=== PATIENT | male | born 1940 | race Caucasian/White ===

== ENCOUNTER 2017-01-28 08:54 | Outpatient (CLI) ==
[2016-03-25 06:22] VITALS: BMI 28.5
== END 2017-01-28 08:55 | disposition home or self-care (01) ==
LOC: CAR 08:54
PROVIDERS: ATTEND Family Medicine
DX: J43.0 Unilateral pulmonary emphysema [MacLeod's syndrome] (principal)
CPT/HCPCS: 94761

== ENCOUNTER 2017-02-09 20:45 | Emergency (ER) ==
[2017-02-09 20:49] VITALS: BP 106/75; TEMP 98.2; BMI 29.8
--- NOTE | 2017-02-09 21:13 | ED.PDOC ---
General ED Provider: Dr. ANDRES UMANZOR-ER Chief Complaint: Ankle Pain/Injury Stated Complaint: i was getting out of my truck and i twisted my ankle and felt a pop Time Seen by Physician: 21:11 Mode of Arrival: Wheelchair Information Source: Patient, Family Exam Limitations: No limitations Primary Care Provider: ANDRES UMANZOR Nursing and Triage Documentation Reviewed and Agree: Yes Musculoskeletal Complaint Exam - Ankle/Foot Complaint/Exam Location of Injury: Reports: Left, Ankle Mechanism of Injury: Reports: No known trauma Onset/Duration: 6hrs Symptoms Are: Reports: Still present Onset of Pain: Reports: Immediate Initial Severity: Mild Current Severity: Mild Location: Reports: Discrete Character: Reports: Dull, Aching Alleviating: Reports: None Aggravating: Reports: Movement, Weight bearing, Prolonged standing Able to Bear Weight: Yes Associated Signs and Symptoms: Reports: Swelling. Denies: Redness, Bruising, Fever, Weakness, Numbness, Tingling Gout Risk Factors: Reports: HTN, Hyperlipidemia Lower Extremity Findings: Present: Swelling, Ecchymosis, Tenderness, Limited range of motion Achilles Tendon Abnormality: No Tenderness: Present: Lateral malleolus Limited Range of Motion: Present: Inversion, Eversion Differential Diagnosis: Closed Fracture, Sprain, Strain Review of Systems - Review Of Systems Constitutional: Reports: No symptoms Eyes: Reports: No symptoms Ears, Nose, Mouth, Throat: Reports: No symptoms Respiratory: Reports: No symptoms Cardiac: Reports: No symptoms GI: Reports: No symptoms : Reports: No symptoms Musculoskeletal: Reports: Joint pain, Joint swelling Skin: Reports: No symptoms Neurological: Reports: No symptoms Endocrine: Reports: No symptoms Hematologic/Lymphatic: Reports: Blood clots All Other Systems: Reviewed and Negative Past Medical History - Past Medical History Previously Healthy: No Endocrine: Reports: Dyslipidemia Cardiovascular: Reports: Hypertension Respiratory: Reports: COPD Hematological: Reports: None Gastrointestinal: Reports: None Genitourinary: Reports: None Neuro/Psych: Reports: None Musculoskeletal: Reports: None Cancer: Reports: None Other Pertinent Past Medical History: athritis - Surgical History General Surgical History: Reports: Cholecystectomy, Other (BACK, RT KNEE REPLACEMENT) - Family History Family History: Reports: Unknown - Social History Smoking Status: Former smoker, Chews tobacco Hx Substance Use: No Alcohol Screening: None Lives: With family - Immunizations Tetanus Shot up to Date: (UNKNOWN) Physical Exam - Physical Exam Appearance: Well-appearing, No pain distress, Well-nourished Pain Distress: Mild Eyes: AGATHA, EOMI, Conjunctiva clear ENT: Ears normal, Nose normal, Oropharynx normal Neck: Supple Respiratory: Airway patent, Breath sounds clear, Breath sounds equal, Respirations nonlabored Cardiovascular: RRR, Pulses normal, No rub, No murmur GI/: Soft Musculoskeletal: Limited ROM Skin: Warm, Dry, Normal color Neurological: Sensation intact, Motor intact, Reflexes intact, Cranial nerves intact, Alert, Oriented Psychiatric: Affect appropriate Interpretation - Radiology Interpretation Radiology Interpretation By: Radiologist Radiology Results: Negative Exam Interpreted: CT Scan Critical Care Note - Critical Care Note Total Time (mins): 0 Course - Course Orders, Labs, Meds: Orders Category Date Time Status Air cast [ED SPLINT APPLICATION] .ONCE EMERGENCY 02/09/17 21:33 Active ED EDGARDO WRAP .ONCE EMERGENCY 02/09/17 21:33 Active Hydrocodone Bit/Acetaminophen [[place] 5-325] MEDS 02/09/17 21:33 Discontinued 1 tab PO ONCE STA CT ANKLE LEFT WITHOUT CONTRAST Stat RADS 02/09/17 20:47 Completed Medications Discontinued Medications Generic Name Dose Route Start Last Admin Trade Name Freq PRN Reason Stop Dose Admin Acetaminophen/Hydrocodone Bitart 1 tab 02/09/17 21:33 02/09/17 21:48 [place] 5-325 PO 02/09/17 21:34 1 tab ONCE STA Administration Vital Signs: Temp Pulse Resp BP Pulse Ox 02/09/17 20:46 98.2 F 83 20 106/75 97 Departure - Departure Time of Disposition: 21:34 Disposition: HOME SELF-CARE Discharge Problem: Ankle pain Instructions: Ankle Sprain (ED), Ankle Stirrup Splint (ED) Condition: Good Pt referred to PMD for follow-up: Yes Additional Instructions: stay in splint--norco 5mg q 4hrs prn pain #10--f/u with me one week if not improved Allergies/Adverse Reactions: Allergies heparin Adverse Reaction (Verified 02/09/17 20:50) hydroxyzine HCl [From Vistaril] Adverse Reaction (Verified 02/09/17 20:50) hydroxyzine pamoate [From Vistaril] Adverse Reaction (Verified 02/09/17 20:50) meperidine HCl [From Demerol] Adverse Reaction (Verified 02/09/17 20:50) Home Medications: Ambulatory Orders Fluticasone/Salmeterol 250/50 [Advair 250-50 Diskus] 1 puff INH BID 07/10/13 Gabapentin [Neurontin] 300 mg PO TID 07/10/13 Losartan/Hydrochlorothiazide [Losartan-Hctz 100-12.5 mg Tab] 1 tab PO DAILY Warfarin Sodium [Coumadin] 5 mg PO DAILY 07/10/13 Atorvastatin Calcium [Lipitor] 10 mg PO BEDTIME 03/25/16 Cinnamon Bark [Cinnamon] 1,000 mg PO DAILY 02/09/17 Flaxseed Oil [Flax Seed Oil] 1,000 mg PO DAILY 02/09/17 Glimepiride [Amaryl] 4 mg PO DAILY 02/09/17 Tiotropium [place] [Spiriva] 1 cap IH DAILY 02/09/17 Disposition Discussed With: Patient, Family
--- NOTE | 2017-02-09 21:32 | CT ---
EXAM: CT of the left ankle without contrast. HISTORY: Injury with pain. PROCEDURE: Contiguous axial CT images of the left ankle without contrast with coronal and sagittal r eformats. FINDINGS: The bones are intact with no evidence of fracture. The joint spaces are maintained. There is a small enthesophyte along the plantar margin of the calcaneus. There is diffuse soft tissue swel ling. Impression: No evidence of fracture. Soft tissue swelling as described. Calcaneal enthesophyte.
[2017-02-09] MEDS ORDERED: NORCO 5-325 PO STA (21:33)
== END 2017-02-09 21:50 | disposition home or self-care (01) ==
LOC: ED 20:45
DX: M25.572 Pain in left ankle and joints of left foot (principal); X50.1XXA Overexertion from prolonged static or awkward postures, initial encounter
CPT/HCPCS: 99282

== ENCOUNTER 2017-02-27 10:19 | Outpatient (RCR) ==
[2017-03-18 10:02] VITALS: BP 104/52
== END 2017-03-20 ==
LOC: PUL.REHAB 10:19
PROVIDERS: ATTEND Family Medicine
DX: J43.9 Emphysema, unspecified (principal)

== ENCOUNTER 2017-03-01 17:21 | Emergency (ER) ==
[2017-03-01 17:22] VITALS: BMI 29.8
[2017-03-01 17:27] VITALS: BP 124/65; TEMP 97.6
[2017-03-01] MEDS ORDERED: LANTUS SUBCUT STA (17:32)
[2017-03-01] MEDS ORDERED: HUMULIN R SUBCUT STA (17:32)
--- NOTE | 2017-03-01 18:11 | ED.PDOC ---
General ED Provider: Dr. ANDRES UMANZOR-ER Chief Complaint: Diabetes Stated Complaint: has type 2 dm and just started on insulin--checked his bs and found to be over 400--came to er--fsbs 311 here--no n/v Time Seen by Physician: 17:30 Mode of Arrival: Walk-In Information Source: Patient Exam Limitations: No limitations Primary Care Provider: ANDRES UMANZOR Nursing and Triage Documentation Reviewed and Agree: Yes Endocrine Complaint Exam - Diabetic Complication Complaint/Exam Onset/Duration: today Symptoms Are: Still present Timing: Constant Initial Severity: Mild Current Severity: Mild Character: Alert, Confused Aggravating: Reports: Medication change Associated Signs and Symptoms: Denies: Decreased LOC, Polydipsia, Polyuria, Polyphagia, Weight loss, Abdominal pain, Nausea, Vomiting, Fever, Diaphoresis, Fruity breath Related History: Reports: DM 2 Cardiac Risk Factors: Reports: DM CVA Risk Factors: Reports: DM Serious Bacterial Infection Risk Factors: Reports: None Related Surgical History: Reports: None Acetone on Breath: No Dry Mucous Membranes: No Kussmaul Respirations: No Glascow Coma Scale (see protocol): 15 Meningeal Signs: No Focal Weakness: None Focal Sensory Loss: None Gait: Normal Nystagmus Present: No Gag Reflex Present: Yes Finger to Nose: Normal Romberg Test Positive: No Babinski Sign: Negative Right, Negative Left Heel to Toe Normal: Yes Differential Diagnoses: Hyperglycemia Review of Systems - Review Of Systems Constitutional: Reports: No symptoms Eyes: Reports: No symptoms Ears, Nose, Mouth, Throat: Reports: No symptoms Respiratory: Reports: No symptoms Cardiac: Reports: No symptoms GI: Reports: No symptoms : Reports: No symptoms Musculoskeletal: Reports: No symptoms Skin: Reports: No symptoms Neurological: Reports: No symptoms Endocrine: Reports: No symptoms Hematologic/Lymphatic: Reports: No symptoms All Other Systems: Reviewed and Negative Past Medical History - Past Medical History Previously Healthy: No Endocrine: Reports: Dyslipidemia Cardiovascular: Reports: Hypertension Respiratory: Reports: COPD Hematological: Reports: None Gastrointestinal: Reports: None Genitourinary: Reports: None Neuro/Psych: Reports: None Musculoskeletal: Reports: None Cancer: Reports: None Other Pertinent Past Medical History: athritis - Surgical History General Surgical History: Reports: Cholecystectomy, Other (BACK, RT KNEE REPLACEMENT) - Family History Family History: Reports: Unknown - Social History Smoking Status: Former smoker, Chews tobacco Hx Substance Use: No Alcohol Screening: Occasionally Physical Exam - Physical Exam Appearance: Well-appearing, No pain distress, Well-nourished Eyes: AGATHA, EOMI, Conjunctiva clear ENT: Ears normal, Nose normal, Oropharynx normal Neck: Supple Respiratory: Airway patent Cardiovascular: RRR, Pulses normal, No rub, No murmur GI/: Soft, Nontender, No masses, Bowel sounds normal, No Organomegaly Musculoskeletal: Normal strength, ROM intact, No edema, No calf tenderness Skin: Warm, Dry, Normal color Neurological: Sensation intact Psychiatric: Affect appropriate, Mood appropriate Re-Evaluation - Re-Evaluation Time of Re-Evaluation: 18:24 Status: Improved (fsbs 264--feeling better) Vital Signs Stable: Yes Pain Level: 0 Appearance: NAD Lungs: Clear Skin: Warm and Dry Neuro: Alert and Oriented X3 CV: RRR Critical Care Note - Critical Care Note Total Time (mins): 0 Course - Course Orders, Labs, Meds: Orders Category Date Time Status BLOOD GLUCOSE MONITORING Q1HR CARE 03/01/17 17:33 Active Insulin Glargine,Hum.rec.anlog [Lantus] MEDS 03/01/17 17:32 Discontinued 10 unit SUBCUT ONCE STA Insulin Regular, Human [Humulin R] MEDS 03/01/17 17:32 Discontinued 12 unit SUBCUT ONCE STA Medications Discontinued Medications Generic Name Dose Route Start Last Admin Trade Name Freq PRN Reason Stop Dose Admin Insulin Glargine 10 unit 03/01/17 17:32 03/01/17 17:49 Lantus SUBCUT 03/01/17 17:33 10 unit ONCE STA Administration Insulin Human Regular 12 unit 03/01/17 17:32 03/01/17 17:50 Humulin R SUBCUT 03/01/17 17:33 12 unit ONCE STA Administration Vital Signs: Temp Pulse Resp BP Pulse Ox 03/01/17 17:24 97.6 F 86 16 124/65 95 Departure - Departure Time of Disposition: 18:24 Disposition: HOME SELF-CARE Discharge Problem: Diabetes type 2, uncontrolled Qualifiers: Diabetes mellitus complication status: without complication Diabetes mellitus intermediate manager insulin use: unspecified intermediate insulin use status Qualified Code(s ): E11.65 - Type 2 diabetes mellitus with hyperglycemia Instructions: Type 2 Diabetes in Adults (ED) Condition: Good Pt referred to PMD for follow-up: Yes Additional Instructions: let me know your fasting blood sugar in am Allergies/Adverse Reactions: Allergies heparin Adverse Reaction (Verified 03/01/17 17:23) hydroxyzine HCl [From Vistaril] Adverse Reaction (Verified 03/01/17 17:23) hydroxyzine pamoate [From Vistaril] Adverse Reaction (Verified 03/01/17 17:23) meperidine HCl [From Demerol] Adverse Reaction (Verified 03/01/17 17:23) Home Medications: Ambulatory Orders Fluticasone/Salmeterol 250/50 [Advair 250-50 Diskus] 1 puff INH BID 07/10/13 Gabapentin [Neurontin] 300 mg PO TID 07/10/13 Losartan/Hydrochlorothiazide [Losartan-Hctz 100-12.5 mg Tab] 1 tab PO DAILY Warfarin Sodium [Coumadin] 5 mg PO DAILY 07/10/13 Atorvastatin Calcium [Lipitor] 10 mg PO BEDTIME 03/25/16 Cinnamon Bark [Cinnamon] 1,000 mg PO DAILY 02/09/17 Flaxseed Oil [Flax Seed Oil] 1,000 mg PO DAILY 02/09/17 Tiotropium [place] [Spiriva] 1 cap IH DAILY 02/09/17 Disposition Discussed With: Patient, Family
== END 2017-03-01 18:32 | disposition home or self-care (01) ==
LOC: ED 17:21
DX: E11.65 Type 2 diabetes mellitus with hyperglycemia (principal); F17.220 Nicotine dependence, chewing tobacco, uncomplicated; Z79.899 Other long term (current) drug therapy
CPT/HCPCS: 82962; 99283

== ENCOUNTER 2017-03-21 07:09 | Outpatient (RCR) ==
[2017-04-15 09:46] VITALS: BP 148/58
== END 2017-04-20 ==
LOC: PUL.REHAB 07:09
PROVIDERS: ATTEND Family Medicine
DX: J43.9 Emphysema, unspecified (principal)

== ENCOUNTER 2017-04-03 15:46 | Emergency (ER) ==
[2017-04-03 15:52] VITALS: BP 135/75; TEMP 99.6; BMI 29.5
--- NOTE | 2017-04-03 17:08 | ED.PDOC ---
General ED Provider: Dr. ISMAEL BLANCAS Chief Complaint: Constipation Stated Complaint: Constipation; last BM Friday; hurts to push Time Seen by Physician: 17:06 Mode of Arrival: Walk-In Information Source: Patient Exam Limitations: No limitations Primary Care Provider: ANDRES UMANZOR Nursing and Triage Documentation Reviewed and Agree: Yes Review of Systems - Review Of Systems Constitutional: Reports: No symptoms GI: Reports: Constipated All Other Systems: Reviewed and Negative Past Medical History - Past Medical History Previously Healthy: No Endocrine: Reports: Dyslipidemia Cardiovascular: Reports: Hypertension Respiratory: Reports: COPD Hematological: Reports: None Gastrointestinal: Reports: None Genitourinary: Reports: None Neuro/Psych: Reports: None Musculoskeletal: Reports: None Cancer: Reports: None Other Pertinent Past Medical History: athritis - Surgical History General Surgical History: Reports: Cholecystectomy, Other (BACK, RT KNEE REPLACEMENT) - Family History Family History: Reports: Unknown - Social History Smoking Status: Former smoker, Chews tobacco Hx Substance Use: No Alcohol Screening: Occasionally - Immunizations Tetanus Shot up to Date: No Physical Exam - Physical Exam Appearance: Well-appearing Eyes: AGATHA Respiratory: Airway patent, Breath sounds clear Cardiovascular: RRR, Pulses normal GI/: Soft, Nontender Skin: Warm, Dry, Normal color Neurological: Alert, Oriented Psychiatric: Affect appropriate, Mood appropriate Critical Care Note - Critical Care Note Total Time (mins): 5 Course - Course Vital Signs: Temp Pulse Resp BP Pulse Ox 04/03/17 15:47 99.6 F 97 H 16 135/75 95 Departure - Departure Time of Disposition: 17:13 Disposition: HOME SELF-CARE Discharge Problem: Constipation Instructions: Constipation (ED) Condition: Good Pt referred to PMD for follow-up: Yes (Call for appointmentn) Additional Instructions: Follow up as needed with Dr. Umanzor; call for appointment, Allergies/Adverse Reactions: Allergies heparin Adverse Reaction (Verified 04/03/17 15:53) hydroxyzine HCl [From Vistaril] Adverse Reaction (Verified 04/03/17 15:53) hydroxyzine pamoate [From Vistaril] Adverse Reaction (Verified 04/03/17 15:53) meperidine HCl [From Demerol] Adverse Reaction (Verified 04/03/17 15:53) Home Medications: Ambulatory Orders Fluticasone/Salmeterol 250/50 [Advair 250-50 Diskus] 1 puff INH BID 07/10/13 Gabapentin [Neurontin] 300 mg PO TID 07/10/13 Losartan/Hydrochlorothiazide [Losartan-Hctz 100-12.5 mg Tab] 1 tab PO DAILY Warfarin Sodium [Coumadin] 5 mg PO DAILY 07/10/13 Atorvastatin Calcium [Lipitor] 10 mg PO BEDTIME 03/25/16 Cinnamon Bark [Cinnamon] 1,000 mg PO DAILY 02/09/17 Flaxseed Oil [Flax Seed Oil] 1,000 mg PO DAILY 02/09/17 Tiotropium [place] [Spiriva] 1 cap IH DAILY 02/09/17
== END 2017-04-03 17:15 | disposition home or self-care (01) ==
LOC: ED 15:46
DX: K59.00 Constipation, unspecified (principal); F17.220 Nicotine dependence, chewing tobacco, uncomplicated
CPT/HCPCS: 99281

== ENCOUNTER 2017-04-22 06:55 | Outpatient (RCR) ==
[2017-04-29 09:49] VITALS: BP 136/56
== END 2017-05-21 ==
LOC: PUL.REHAB 06:55
PROVIDERS: ATTEND Family Medicine
DX: J43.9 Emphysema, unspecified (principal)

== ENCOUNTER 2017-05-22 06:56 | Outpatient (RCR) | END 2017-06-18 | LOC: PUL.REHAB 06:56 | PROVIDERS: ATTEND Family Medicine | DX: J43.9 Emphysema, unspecified (principal) ==

== ENCOUNTER 2017-06-19 06:38 | Outpatient (RCR) | END 2017-07-17 15:06 | disposition home or self-care (01) | LOC: PUL.REHAB 06:38 | PROVIDERS: ATTEND Family Medicine | DX: J43.9 Emphysema, unspecified (principal) ==

== ENCOUNTER 2018-07-10 10:36 | Emergency (ER) ==
[2018-07-10 10:44] VITALS: BP 130/64; TEMP 98.1; BMI 30.7
--- NOTE | 2018-07-10 12:05 | ED.PDOC ---
General ED Provider: Dr. CATY LARA Chief Complaint: Altered Mental Status Stated Complaint: patients answering for him giving very succint report, Started at 1 an with confusion and going with urine x 4,[facility]Patient himself is not in any acute distyress and communicates with examiner however is visibly "slow". Time Seen by Physician: 10:40 Mode of Arrival: Walk-In Information Source: Patient, Family Exam Limitations: No limitations Primary Care Provider: ANDRES UMANZOR Nursing and Triage Documentation Reviewed and Agree: Yes Does patient meet sepsis criteria?: No System Inflammatory Response Syndrome: Not Applicable Sepsis Protocol: For patient's 13 years and over: Temp is 96.8 and below OR 101 and greater Pulse >90 BPM Resp >20/minute Acutely Altered Mental Status Are patient's symptoms suggestive of a new infection, such as: -Pneumonia -Skin, Soft Tissue -Endocarditis -UTI -Bone, Joint Infection -Implantable Device -Acute Abdominal Infection -Wound Infection -Meningitis -Blood Stream Catheter Infection -Unknown Neurological Complaint Exam - Altered Mental Status Complaint/Exam Current Mental Status: Confusion Last Known Well: at 1am today Onset: Sudden Symptoms Are: Still present Timing: Constant Episodes Lasting: Hours Initial Severity: Mild Current Severity: Moderate Eye Deviation Present: No Character: Reports: Confusion Aggravating: Reports: None Alleviating: Reports: Spontaneous resolution Associated Signs and Symptoms: Reports: Weakness Related History: Reports: Similar episode Cardiac Risk Factors: Reports: Diabetes CVA Risk Factors: Reports: Diabetes Carotid Bruit Present: No Nystagmus Present: No Gag Reflex Present: Yes Meningeal Signs Positive: No Focal Weakness: Present: None Focal Sensory Loss: Present: None [id number]: Normal Findings Signs of Injury: Present: Normal findings Thrombolytics Considered: No Differential Diagnoses: Intracranial Bleed, Metabolic Disorder, TIA Review of Systems - Review Of Systems Constitutional: Reports: No symptoms All Other Systems: Reviewed and Negative Past Medical History - Past Medical History Previously Healthy: No Endocrine: Reports: Dyslipidemia Cardiovascular: Reports: Hypertension Respiratory: Reports: COPD Hematological: Reports: None Gastrointestinal: Reports: None Genitourinary: Reports: None Neuro/Psych: Reports: None Musculoskeletal: Reports: None Cancer: Reports: None Other Pertinent Past Medical History: athritis - Surgical History General Surgical History: Reports: Cholecystectomy, Other (BACK, RT KNEE REPLACEMENT) - Family History Family History: Reports: Unknown - Social History Smoking Status: Former smoker, Chews tobacco Hx Substance Use: No Alcohol Screening: None - Immunizations Tetanus Shot up to Date: No Physical Exam - Physical Exam Appearance: Well-nourished Ill-appearing: Mild Pain Distress: None Eyes: AGATHA ENT: Ears normal Neck: Supple Respiratory: Airway patent, Breath sounds clear Cardiovascular: RRR GI/: Nontender Musculoskeletal: Normal strength Skin: Warm Neurological: Sensation intact Critical Care Note - Critical Care Note Total Time (mins): 0 Course - Course Hematology/Chemistry: 07/10/18 12:50 07/10/18 12:50 Orders, Labs, Meds: Lab Review 07/10/18 07/10/18 07/10/18 12:50 12:50 13:55 WBC 7.96 RBC 4.97 Hgb 13.8 L Hct 41.7 L MCV 83.9 MCH 27.8 MCHC 33.1 RDW Coeff of Bren 14.0 Plt Count 208 Immature Gran % (Auto) 0.6 Neut % (Auto) 70.2 Lymph % (Auto) 17.6 [place] % (Auto) 8.5 Eos % (Auto) 2.5 Baso % (Auto) 0.6 Immature Gran # (Auto) 0.1 Neut # (Auto) 5.6 Lymph # (Auto) 1.4 [place] # (Auto) 0.7 Eos # (Auto) 0.2 Baso # (Auto) 0.1 Sodium 137.1 Potassium 3.22 L Chloride 97.5 L Carbon Dioxide 29.5 Anion Gap 13.32 BUN 16.6 Creatinine 1.56 H Estimated GFR (MDRD) 43.00 BUN/Creatinine Ratio 10.64 Glucose 206.1 H Calcium 9.13 Total Bilirubin 0.72 AST 19.3 ALT 14.8 Alkaline Phosphatase 102.4 Total Protein 7.32 Albumin 4.05 Globulin 3.27 Albumin/Globulin Ratio 1.23 Urine Color Yellow Urine Clarity Clear Urine pH 6.5 Ur Specific [place] 1.010 Urine Protein 1+ Urine Glucose (UA) Negative Urine Ketones Negative Urine Blood Trace-intact Urine Nitrite Negative Urine Bilirubin Negative Urine Urobilinogen 0.2 Ur Leukocyte Esterase Negative Urine Microscopic RBC 0-2 Ur Squamous Epith Cells 2-5 Orders Category Date Time Status NPO REMINDER: IMAGING ONCE CARE 07/10/18 12:28 Active ED IV/MEDIPORT/POWERPORT .ONCE EMERGENCY 07/10/18 13:30 Active CBC W/ AUTO DIFF Stat LAB 07/10/18 12:50 Completed COMPREHENSIVE METABOLIC PANEL Stat LAB 07/10/18 12:50 Completed URINALYSIS WITH MICROSCOPIC Stat LAB 07/10/18 13:55 Completed 0.9 % Sodium Chloride [Saline Flush] MEDS 07/10/18 13:30 Active 1 syr IVF PRN PRN Potassium Chloride [K-Dur] MEDS 07/10/18 13:31 Discontinued 20 meq PO ONCE STA Sodium Chloride 0.9% [Sodium Chloride] 500 ml MEDS 07/10/18 13:[address] HEAD W/O CONTRAST Stat RADS 07/10/18 12:47 Completed Medications Generic Name Dose Route Start Last Admin Trade Name Freq PRN Reason Stop Dose Admin Sodium Chloride 500 mls @ 500 mls/hr 07/10/18 13:30 07/10/18 13:42 Sodium Chloride IV 07/10/18 14:29 500 mls/hr BOLUS STA Administration Sodium Chloride 1 syr 07/10/18 13:30 07/10/18 13:42 Saline Flush IVF 1 syr PRN PRN Administration To flush IV Discontinued Medications Generic Name Dose Route Start Last Admin Trade Name Freq PRN Reason Stop Dose Admin Potassium Chloride 20 meq 07/10/18 13:31 07/10/18 13:44 K-Dur PO 07/10/18 13:32 20 meq ONCE STA Administration Vital Signs: Temp Pulse Resp BP Pulse Ox 07/10/18 10:38 98.1 F 71 16 130/64 91 L Departure - Departure Time of Disposition: 14:09 Disposition: HOME SELF-CARE Discharge Problem: Cardiac dysrhythmia Instructions: Amiodarone (By mouth) Condition: Good Pt referred to PMD for follow-up: Yes (follow with cardiology as scheduled) IPMP verified?: No Allergies/Adverse Reactions: Allergies heparin Adverse Reaction (Verified 07/10/18 10:47) hydroxyzine HCl [From Vistaril] Adverse Reaction (Verified 07/10/18 10:47) hydroxyzine pamoate [From Vistaril] Adverse Reaction (Verified 04/08/18 00:22) meperidine HCl [From Demerol] Adverse Reaction (Verified 07/10/18 10:47) Home Medications: Ambulatory Orders Gabapentin [Neurontin] 200 mg PO DAILY 07/10/13 Atorvastatin Calcium [Lipitor] 20 mg PO BEDTIME 03/25/16 Apixaban [Eliquis] 5 mg PO BID 03/07/18 Duloxetine HCl [Cymbalta] 30 mg PO DAILY 03/07/18 Insulin Glargine,Hum.rec.anlog [Lantus] 60 - 80 unit SQ DAILY 03/07/18 Tamsulosin HCl [Flomax] 0.4 mg PO DAILY 03/07/18 Glimepiride [Amaryl] 4 mg PO DAILY 04/08/18 Linaclotide [Linzess] 290 mcg PO EVERY OTHER DAY 04/08/18 Losartan Potassium [Cozaar] 50 mg PO DAILY 04/08/18 Metoprolol Succinate [Toprol Xl] 50 mg PO DAILY 04/08/18 Albuterol Sulfate [Proair Hfa] 1 puff IH PRN PRN 07/10/18 Budesonide/Formoterol Fumarate [Symbicort 160-4.5 Mcg Inhaler] 1 puff IH BID Ferrous Sulfate 325 mg PO BID 07/10/18 Furosemide [Lasix] 20 mg PO DAILY PRN 07/10/18 Gabapentin [Neurontin] 200 mg PO DAILY 07/10/18 Vit D3/Folic Acid/B2/B6/B12 [Folgard Tablet] 1 tab PO DAILY 07/10/18 Disposition Discussed With: Patient
[2018-07-10] MEDS ORDERED: SODIUM CHLORIDE 500 ML IV STA (13:30)
[2018-07-10] MEDS ORDERED: K-DUR PO STA (13:31)
--- NOTE | 2018-07-10 13:39 | CT ---
EXAM: CT of the head without contrast History: Altered mental status. Comparison: Head CT 03/07/2018 Technique: Multiplanar CT images through the head were obtained without the administration of IV con trast Findings: The visualized paranasal sinuses and mastoid air cells are clear in general. No acute dang varial abnormalities. Intracranially there is mild diffuse cerebral atrophy. No dominant mass or midline shift. No hydroc ephalous. No acute intracranial hemorrhage or abnormal extraaxial fluid collections. Periventricula r and subcortical white matter hypodensities. Impression: 1. No acute intracranial hemorrhage. 2. Atrophy and chronic small vessel ischemic disease is unchanged compared to the prior study.
== END 2018-07-10 14:35 | disposition home or self-care (01) ==
LOC: ED 10:36
DX: I49.9 Cardiac arrhythmia, unspecified (principal); R41.82 Altered mental status, unspecified; E11.9 Type 2 diabetes mellitus without complications; R53.1 Weakness; E78.5 Hyperlipidemia, unspecified; I10 Essential (primary) hypertension; D64.9 Anemia, unspecified; Z79.4 Long term (current) use of insulin; Z79.899 Other long term (current) drug therapy; Z72.0 Tobacco use
CPT/HCPCS: 36415; 80053; 81001; 85025; 96360; 99283